=== PATIENT | male | born 1975 | race Caucasian/White ===

== ENCOUNTER 2020-03-01 12:11 | Emergency (ER) | payer OTHER ==
[~2020-03-01] VITALS: Ht 180.3 cm; Wt 86.0 kg
--- NOTE | 2020-03-01 14:12 | NUR ---
Vascular at bedside performing US.
[2020-03-01 14:44] VITALS: BP 143/88
== END 2020-03-01 14:45 | disposition home or self-care (01) ==
LOC: ER 12:12
DX: S86.911A Strain of unspecified muscle(s) and tendon(s) at lower leg level, right leg, initial encounter (principal); X58.XXXA Exposure to other specified factors, initial encounter; Y93.89 Activity, other specified; Y92.89 Other specified places as the place of occurrence of the external cause; Y99.8 Other external cause status
CPT/HCPCS: 93971; 99284